=== PATIENT | male | born 1970 | race Hispanic/Latino ===

== ENCOUNTER 2017-08-13 20:02 | Emergency (ER) | payer MEDICARE, OTHER ==
[2017-08-13 20:26] LABS: BASOPHILS % (AUTO) 0.4 % (0.0-5.0); EOSINOPHILS % (AUTO) 5.2 % (0.0-8.0); HEMATOCRIT 49.6 % (42-54); LYMPHOCYTES % (AUTO) 26.8 % (21.0-51.0); MEAN CORPUSCULAR HEMOGLOBIN 33.4 pg (27.0-33.0); MEAN CORPUSCULAR HGB CONC 33.9 g/dL (32.0-36.0); MEAN CORPUSCULAR VOLUME 98.5 fL (79-99); MONOCYTES % (AUTO) 8.2 % (3.0-13.0); NEUTROPHILS % (AUTO) 59.4 % (40.0-77.0); NUCLEATED RED BLOOD CELLS 0.1 % (0.0-0.19); PLATELET COUNT (AUTO) 265 K/uL (130-400); RED BLOOD CELL COUNT(AUTO) 5.04 MIL/uL (4.50-6.20); RED CELL DISTRIBUTION WIDTH 14.3 % (11.0-15.5); WHITE BLOOD COUNT (AUTO) 6.7 K/uL (4.8-10.8)
[2017-08-13 20:36] LABS: CREATININE 1.1 mg/dL (0.5-1.5); POTASSIUM 4.5 mmol/L (3.5-5.1)
[2017-08-13 20:41] LABS: ALBUMIN 3.8 g/dL (3.5-5.0); BILIRUBIN,TOTAL 0.6 mg/dL (0.2-1.0)
[2017-08-13 20:49] LABS: INR 0.92 (0.85-1.15); PROTHROMBIN TIME 9.7 SEC (9.6-11.6)
[2017-08-13] MEDS ORDERED: KETOROLAC TROMETHAMINE 30MG/ML ONE (22:13)
[2017-08-13] MEDS ORDERED: NITROGLYCERIN 0.4 MG SL TAB SL ONE (22:14)
[2017-08-13] MEDS ORDERED: ORPHENADRINE CITRATE 30 MG/ML ML ONE (22:15)
== END 2017-08-14 01:03 | disposition home or self-care (01) ==
LOC: EDH 20:02
DX: R07.89 Other chest pain (principal); Z72.0 Tobacco use
CPT/HCPCS: 36415; 71045; 80053; 84484 ×2; 85025; 85610; 85730; 93005 ×2; 96374; 96375; 99291; J1885; J2360

== ENCOUNTER 2019-07-04 16:09 | Observation (INO) | payer OTHER ==
[~2019-07-04] VITALS: Ht 172.7 cm; Wt 96.2 kg
[2019-07-04 16:45] LABS: BASOPHILS % (AUTO) 0.6 % (0.0-5.0); EOSINOPHILS % (AUTO) 2.6 % (0.0-8.0); HEMATOCRIT 48.2 % (42-54); LYMPHOCYTES % (AUTO) 41.5 % (21.0-51.0); MEAN CORPUSCULAR HEMOGLOBIN 33.1 pg (27.0-33.0); MEAN CORPUSCULAR VOLUME 97.2 fL (79-99); MONOCYTES % (AUTO) 7.5 % (3.0-13.0); NEUTROPHILS % (AUTO) 47.6 % (40.0-77.0); NUCLEATED RED BLOOD CELLS 0.2 % (0.0-0.19); PLATELET COUNT (AUTO) 250 K/uL (130-400); RED BLOOD CELL COUNT(AUTO) 4.96 MIL/uL (4.50-6.20); RED CELL DISTRIBUTION WIDTH 13.2 % (11.0-15.5); WHITE BLOOD COUNT (AUTO) 8.5 K/uL (4.8-10.8)
[2019-07-04 16:49] LABS: POTASSIUM 4.1 mmol/L (3.5-5.1)
[2019-07-04 16:52] LABS: INR 0.9 (0.85-1.15); PARTIAL THROMBOPLASTIN TIME 28.5 SEC (26.3-35.5); PROTHROMBIN TIME 9.8 SEC (9.6-11.6)
[2019-07-04 16:53] LABS: ALBUMIN 3.7 g/dL (3.5-5.0); BILIRUBIN,TOTAL 0.4 mg/dL (0.2-1.0); TOTAL PROTEIN, SERUM 7.6 g/dL (6.0-8.3)
[2019-07-04] MEDS ORDERED: ONDANSETRON HCL 4 MG/2 ML VIAL IV PRN (18:00)
[2019-07-04] MEDS ORDERED: ATORVASTATIN CALCIUM 20 MG TABLET PO SCH (18:00)
[2019-07-04] MEDS ORDERED: ACETAMINOPHEN 325 MG TAB PO PRN (18:00)
[2019-07-04] MEDS ORDERED: ATORVASTATIN CALCIUM 20 MG TABLET ONE (18:53)
[2019-07-04 19:16] LABS: APPEARANCE,URINE Clear (CLEAR); BILIRUBIN,URINE Negative (NEGATIVE); COLOR,URINE Yellow (YELLOW); GLUCOSE, URINE (UA) Negative (NEGATIVE); KETONES,URINE Negative (NEGATIVE); LEUKOCYTE ESTERASE ,URINE Trace (NEGATIVE); NITRATE,URINE Negative (NEGATIVE); OCCULT BLOOD,URINE Negative (NEGATIVE); PROTEIN,URINE Negative (NEGATIVE)
[2019-07-04 19:24] LABS: AMPHET/METH SCREEN,URINE NEGATIVE (NEGATIVE); BARBITURATE SCREEN, URINE NEGATIVE (NEGATIVE); BENZODIAZEPINES SCREEN,URINE NEGATIVE (NEGATIVE); CANNABINOID SCREEN,URINE NEGATIVE (NEGATIVE); COCAINE SCREEN,URINE NEGATIVE (NEGATIVE); OPIATE SCREEN,URINE NEGATIVE (NEGATIVE); PHENCYCLIDINE SCREEN,URINE NEGATIVE (NEGATIVE)
[2019-07-04 19:26] LABS: BACTERIA,URINE None Seen /HPF (None Seen); MUCUS,URINE Few LPF (None Seen); SQUAMOUS EPITHELIAL CELL,UR 0-2 /HPF (0-2); WBC,URINE 0-1 /HPF (0-1)
[2019-07-04] MEDS: ATORVASTATIN CALCIUM 20 MG TABLET PO SCH (21:00)
[2019-07-04] MEDS: FAMOTIDINE/PF 20 MG/2 ML VIAL IV SCH (21:00)
[2019-07-04] MEDS ORDERED: ASPIRIN 81MG TAB.CHEW PO SCH (21:30)
[2019-07-04] MEDS ORDERED: IOHEXOL-350 75 ML VIAL IV ONE (21:34)
[2019-07-04] MEDS ORDERED: ASPIRIN 81MG TAB.CHEW ONE (22:26)
[2019-07-04] MEDS ORDERED: FAMOTIDINE/PF 20 MG/2 ML VIAL IV ONE (22:27)
[2019-07-04 22:35] VITALS: BP 153/88
[2019-07-05 04:00] VITALS: BP 144/84
[2019-07-05 04:11] LABS: BASOPHILS % (AUTO) 0.6 % (0.0-5.0); EOSINOPHILS % (AUTO) 3.3 % (0.0-8.0); HEMATOCRIT 47.3 % (42-54); LYMPHOCYTES % (AUTO) 40.7 % (21.0-51.0); MEAN CORPUSCULAR HEMOGLOBIN 32.9 pg (27.0-33.0); MEAN CORPUSCULAR HGB CONC 33.8 g/dL (32.0-36.0); MEAN CORPUSCULAR VOLUME 97.3 fL (79-99); MONOCYTES % (AUTO) 8.2 % (3.0-13.0); NEUTROPHILS % (AUTO) 46.9 % (40.0-77.0); PLATELET COUNT (AUTO) 240 K/uL (130-400); RED BLOOD CELL COUNT(AUTO) 4.86 MIL/uL (4.50-6.20); WHITE BLOOD COUNT (AUTO) 6.7 K/uL (4.8-10.8)
[2019-07-05 04:39] LABS: ALBUMIN 3.5 g/dL (3.5-5.0); BILIRUBIN,TOTAL 0.7 mg/dL (0.2-1.0); POTASSIUM 4.4 mmol/L (3.5-5.1); THYROID STIMULATING HORMONE 2.45 uIU/mL (0.36-3.74); TOTAL PROTEIN, SERUM 7.1 g/dL (6.0-8.3)
[2019-07-05] MEDS: FAMOTIDINE/PF 20 MG/2 ML VIAL IV SCH ×2 (07:24→20:09)
[2019-07-05] MEDS: ASPIRIN 81MG TAB.CHEW PO SCH (07:28)
--- NOTE | 2019-07-05 07:45 | NUR ---
ASSESSMENT PT IS AAOX3 DENIES CP DENIES SOB DENIES NV NO COMPLAINTS. MOVES ALL EXTREMITIES X4WITH FULL ROM, DENIES NUMBNESS AND TINGLING. SITTING UPRIGHT IN BED. SPEECH CLEAR AND COHERENT. CALL LIGHT WITHIN REACH.
[2019-07-05 08:00] VITALS: BP 156/90
--- NOTE | 2019-07-05 10:40 | NUR ---
DR JESSE SOLIMAN SAW PATIENT ORDERS RECEIVED
[2019-07-05 11:58] VITALS: BP 163/95
--- NOTE | 2019-07-05 12:35 | NUR ---
DYSPHAGIA DEVYN COMPLETED NO S/S OF ASPIRATION. RECOMMEND REGULAR SOLIDS, THIN LIQUIDS, PILLS WHOLE WITH LIQUIDS. CLINICAL ACCOUNT LIAISON EDUCATED Pt ON RISKS AND CONSEQUENCES OF ASPIRATION. ALL QUESTIONS ANSWERED AT THIS TIME. CLINICAL ACCOUNT LIAISON COORDINATED CARE AND RECOMMENDATION WITH NURSE HONG. Addendum: 07/05/[address] MICHELLE VEGA Amended: Links added.
[2019-07-05 16:00] VITALS: BP 158/87
--- NOTE | 2019-07-05 18:39 | NUR ---
CHART REVIEWD, NO CVA, CERVICAL DISK FINDINGS PT YOUNG, ACTIVE, AMULATORY INDPENDENT DEFERRED DETAILED CM ASSESSMENT AT THIS TIME, WILL RE VISIT IF CM TRIGGERS OR CONCERNS DISCUSSED PT STATUS WITH MD Addendum: 07/05/19 at 1841 by ROSIBEL LILLY RN CM Amended: Links added.
[2019-07-05 20:00] VITALS: BP 148/94
[2019-07-05] MEDS: ATORVASTATIN CALCIUM 20 MG TABLET PO SCH (20:09)
[2019-07-06] VITALS: BP 150/93
[2019-07-06 04:00] VITALS: BP 151/93
[2019-07-06 05:30] LABS: BASOPHILS % (AUTO) 0.4 % (0.0-5.0); EOSINOPHILS % (AUTO) 2.8 % (0.0-8.0); HEMATOCRIT 49.4 % (42-54); LYMPHOCYTES % (AUTO) 37.3 % (21.0-51.0); MEAN CORPUSCULAR HEMOGLOBIN 32.1 pg (27.0-33.0); MEAN CORPUSCULAR HGB CONC 32.8 g/dL (32.0-36.0); MEAN CORPUSCULAR VOLUME 97.8 fL (79-99); MONOCYTES % (AUTO) 8.3 % (3.0-13.0); NEUTROPHILS % (AUTO) 51.1 % (40.0-77.0); PLATELET COUNT (AUTO) 237 K/uL (130-400); RED BLOOD CELL COUNT(AUTO) 5.05 MIL/uL (4.50-6.20); RED CELL DISTRIBUTION WIDTH 13.3 % (11.0-15.5); WHITE BLOOD COUNT (AUTO) 6.8 K/uL (4.8-10.8)
[2019-07-06 05:49] LABS: ALBUMIN 3.5 g/dL (3.5-5.0); BILIRUBIN,TOTAL 0.8 mg/dL (0.2-1.0); POTASSIUM 4.5 mmol/L (3.5-5.1); TOTAL PROTEIN, SERUM 7.4 g/dL (6.0-8.3)
--- NOTE | 2019-07-06 07:30 | NUR ---
ASSESSMENT ENCOUNTERED PT A&OX3, CALM COOPERATIVE AND DOES NOT APPEAR TO BE IN ANY DISTRESS NOR ANY NEURO DEFICITS PRESENT. PT DENIES PAIN, SOB, NAUSEA. PT IS AMBULATORY, GAIT STEADY AND STRONG WITH STAND BY ASSIST. PT IS ABLE TO TOLERATE FOODS, FLUIDS AND MEDICATION WITH NO THROAT CLEARING OR COUGH. CALL LIGHT WITHIN REACH.
[2019-07-06 07:34] VITALS: BP 153/103
[2019-07-06] MEDS: FAMOTIDINE/PF 20 MG/2 ML VIAL IV SCH (09:22)
[2019-07-06] MEDS: ASPIRIN 81MG TAB.CHEW PO SCH (09:22)
[2019-07-06 09:25] VITALS: BP 156/89
--- NOTE | 2019-07-06 10:00 | NUR ---
DR MOLINA AT BEDSIDE UPDATE GIVEN, ORDERS RECEIVED
--- NOTE | 2019-07-06 10:05 | NUR ---
FOLLOW UP COMPLETED. Pt TOLERATING REGULAR DIET WITH NO S/S OF ASPIRATION. SHAREPOINT DEVELOPER COORDINATED WITH NURSE MOORE. Addendum: 07/06/[address] MICHELLE VEGA Amended: Links added.
[2019-07-06 10:56] VITALS: BP 144/96
--- NOTE | 2019-07-06 12:00 | NUR ---
DR ARMENTA AT BEDSIDE UPDATE GIVEN, ORDERS RECEIVED
--- NOTE | 2019-07-06 13:00 | NUR ---
DISCHARGE INSTRUCTIONS GIVEN, PIV REMOVED AND INTACT, DISCHARGED HOME TO FAMILY VEHICLE VIA WHEELCHAIR.
[2019-07-06] MEDS ORDERED: GABAPENTIN 100 MG CAPSULE PO SCH (21:00)
[2019-07-06] MEDS ORDERED: ATORVASTATIN CALCIUM 40 MG TABLET PO SCH (21:00)
== END 2019-07-06 13:35 | disposition home or self-care (01) ==
LOC: EDH 16:09 → EDHIP 17:54 → INTOOBSV 17:54 → EDHIP 17:55 → 4DH 22:42
PROVIDERS: ADMIT Internal Medicine; ATTEND Internal Medicine
DX: G45.9 Transient cerebral ischemic attack, unspecified (principal); E78.2 Mixed hyperlipidemia; E66.9 Obesity, unspecified; M48.02 Spinal stenosis, cervical region; R03.0 Elevated blood-pressure reading, without diagnosis of hypertension; Z87.828 Personal history of other (healed) physical injury and trauma; Z79.899 Other long term (current) drug therapy; Z68.32 Body mass index [BMI] 32.0-32.9, adult
CPT/HCPCS: 36415 ×3; 70450; 70496; 70498; 70551; 71045; 72141; 80053 ×3; 80061; 80305; 81001; 82550; 82948; 83036; 83721; 84443; 84484; 85025 ×3; 85610; 85730; 92610; 93005; 93306; 93356; 93880; 96374; 96376; 97161; 99291; G0378 ×43; G8978; G8979; G8980; G8981; G8982; G8983; J3490 ×3; Q9967

== ENCOUNTER 2022-03-16 08:52 | Emergency (ER) | payer OTHER ==
[~2022-03-16] VITALS: Ht 170.2 cm; Wt 96.2 kg
[2022-03-16 09:22] LABS: BASOPHILS % (AUTO) 0.7 % (0.0-5.0); EOSINOPHILS % (AUTO) 2.5 % (0.0-8.0); HEMATOCRIT 49.5 % (42-54); LYMPHOCYTES % (AUTO) 42.5 % (21.0-51.0); MEAN CORPUSCULAR HEMOGLOBIN 32.5 pg (27.0-33.0); MEAN CORPUSCULAR HGB CONC 32.9 g/dL (32.0-36.0); MEAN CORPUSCULAR VOLUME 98.6 fL (79-99); MONOCYTES % (AUTO) 7.7 % (3.0-13.0); NEUTROPHILS % (AUTO) 46.4 % (40.0-77.0); PLATELET COUNT (AUTO) 247 K/uL (130-400); RED BLOOD CELL COUNT(AUTO) 5.02 MIL/uL (4.50-6.20); RED CELL DISTRIBUTION WIDTH 13.4 % (11.0-15.5); WHITE BLOOD COUNT (AUTO) 5.7 K/uL (4.8-10.8)
[2022-03-16 09:33] LABS: CREATININE 0.9 mg/dL (0.5-1.5); POTASSIUM 4.6 mmol/L (3.5-5.1)
[2022-03-16 09:38] LABS: ALBUMIN 3.7 g/dL (3.5-5.0); TOTAL PROTEIN, SERUM 7.7 g/dL (6.0-8.3)
[2022-03-16] MEDS ORDERED: ORPHENADRINE CITRATE 30 MG/ML ML IVP ONE (12:00)
[2022-03-16] MEDS ORDERED: KETOROLAC 30MG VIAL (30MG/ML) IVP ONE (12:00)
[2022-03-16] MEDS ORDERED: CYCL-309 PO (12:02)
[2022-03-16] MEDS ORDERED: IBUP-2070 PO (12:02)
[2022-03-16 12:34] VITALS: BP 123/78
== END 2022-03-16 12:44 | disposition home or self-care (01) ==
LOC: EDH 08:52
DX: M54.12 Radiculopathy, cervical region (principal); I10 Essential (primary) hypertension; Z86.73 Personal history of transient ischemic attack (TIA), and cerebral infarction without residual deficits
CPT/HCPCS: 99285; 96374; 72125; 71045; 96375; 82550; 84484; 80053; 85025; 82948; 36415; 73030; 93005; J1885; J2360